=== PATIENT | female | born 1980 | race Caucasian/White ===

== ENCOUNTER 2020-12-21 14:18 | Outpatient (CLI) | payer OTHER ==
[~2020-12-21] VITALS: Ht 152.4 cm; Wt 80.0 kg
[2020-12-21] MEDS ORDERED: PREN1TAB60 PO (14:41)
[2020-12-21] MEDS ORDERED: ACYC-113 PO (14:43)
[2020-12-21 15:17] VITALS: BP 111/74
[2020-12-21] MEDS ORDERED: ZOLPIDEM 10MG TABLET PO ONE (17:28)
== END 2020-12-21 17:42 | disposition home or self-care (01) ==
LOC: LDOP 14:18 → EDSTATUS 12-24 14:17
PROVIDERS: ATTEND Obstetrics & Gynecology
DX: O09.93 Supervision of high risk pregnancy, unspecified, third trimester (principal); O42.92 Full-term premature rupture of membranes, unspecified as to length of time between rupture and onset of labor; Z3A.38 38 weeks gestation of pregnancy
CPT/HCPCS: 59025; 84112

== ENCOUNTER 2020-12-22 06:44 | Inpatient (IN) | payer OTHER ==
[~2020-12-22] VITALS: Ht 154.9 cm; Wt 80.0 kg
[~2020-12-22 06:44] MED LIST: ACYC-113 PO; PREN1TAB60 PO
[2020-12-22 07:03] VITALS: BP 119/61
[2020-12-22] MEDS ORDERED: NEWBORN KIT ONE (07:44)
[2020-12-22] MEDS ORDERED: LIDOCAINE 1%, 20ML ONE (07:45)
[2020-12-22] MEDS ORDERED: MISOPROSTOL 200 MCG TABLET ONE (07:46)
[2020-12-22 07:51] LABS: BASOPHILS % (AUTO) 1 % (0-1); EOSINOPHILS % (AUTO) 0 % (1-7); LYMPHOCYTES % (AUTO) 10 % (22-44); MEAN CORPUSCULAR HEMOGLOBIN 29.9 pg (27.0-34.8); MEAN CORPUSCULAR HGB CONC 33.5 g/dL (32.4-35.8); MEAN PLATELET VOLUME 8.4 fL (7.4-10.4); MONOCYTES % (AUTO) 5 % (2-9); NEUTROPHILS % (AUTO) 85 % (42-75); PLATELET COUNT 338 x10^3/uL (130-400); RED BLOOD COUNT 3.93 x10^6/uL (3.82-5.3); RED CELL DISTRIBUTION WIDTH 15.3 % (9.6-15.2)
[2020-12-22 07:52] LABS: MD NO
[2020-12-22] MEDS: LACTATED RINGERS 1,000 ML IV SCH ×5 (07:53→22:30)
[2020-12-22] MEDS ORDERED: OXYTOCIN 30U/ 0.9% NaCL 500ML 500 ML IV ONE (08:00)
[2020-12-22] MEDS ORDERED: METOCLOPRAMIDE 5 MG/ML, 2ML IVPush PRN (08:00)
[2020-12-22] MEDS ORDERED: FENTANYL PF 100 MCG/2ML IV PRN (08:00)
[2020-12-22] MEDS ORDERED: FENTANYL PF 100 MCG/2ML IVPush PRN (08:00)
[2020-12-22] MEDS ORDERED: ONDANSETRON 2MG/ML, 2ML IVPush PRN ×2 (08:00→14:30)
[2020-12-22] MEDS ORDERED: TERBUTALINE 1 MG/ML, 1ML IVPush PRN (08:00)
[2020-12-22] MEDS ORDERED: TERBUTALINE 1 MG/ML, 1ML SQ PRN (08:00)
[2020-12-22] MEDS ORDERED: SODIUM CITRATE/CITRIC ACID 30 ML UDC PO PRN (08:00)
[2020-12-22] MEDS ORDERED: OXYTOCIN 30U/ 0.9% NaCL 500ML 500 ML IV PRN (09:30)
[2020-12-22] MEDS ORDERED: BUPIVACAINE 0.25% ONE (13:25)
[2020-12-22] MEDS ORDERED: FENTANYL/BUPIV./NS/PF 250 ML EPIDCONT ONE (13:26)
[2020-12-22] MEDS ORDERED: FENTANYL/BUPIV./NS/PF 250 ML EPIDCONT SCH (14:30)
[2020-12-22] MEDS ORDERED: NALOXONE 0.4 MG/ML, 1ML IVPush PRN (14:30)
[2020-12-22] MEDS ORDERED: LACTATED RINGERS 1,000 ML IVBOLUS PRN (14:30)
[2020-12-22] MEDS ORDERED: DIPHENHYDRAMINE 50 MG/ML, 1ML IVPush PRN (14:30)
[2020-12-22] MEDS ORDERED: EPHEDRINE 50 MG/ML, 1ML IVPush PRN (14:30)
[2020-12-22] MEDS: D5%-LACTATED RINGERS 1,000 ML IV SCH ×2 (16:00→21:18)
[2020-12-22] MEDS ORDERED: ACETAMINOPHEN 325 MG TABLET ONE (21:25)
[2020-12-22] MEDS ORDERED: ACETAMINOPHEN 325 MG TABLET PO PRN ×3 (21:30→23:30)
[2020-12-22] MEDS ORDERED: AMPICILLIN 2 GM in SODIUM CHLORIDE 0.9% 100 ML IVPB ONE (21:30)
[2020-12-22] MEDS ORDERED: CLINDAMYCIN PMX 900MG/50ML 50 ML ONE (22:36)
[2020-12-22] MEDS ORDERED: CLINDAMYCIN PMX 900MG/50ML 50 ML IV ONE (23:00)
[2020-12-22] MEDS ORDERED: ONDANSETRON 2MG/ML, 2ML IV PRN (23:30)
[2020-12-22] MEDS ORDERED: CARBOPROST TROMETHAMINE 250 MCG/ML, 1ML IM PRN (23:30)
[2020-12-22] MEDS ORDERED: CALCIUM CARBONATE 500 MG TAB.CHEW PO PRN (23:30)
[2020-12-22] MEDS ORDERED: SIMETHICONE 80 MG CHEW TAB PO PRN (23:30)
[2020-12-22] MEDS ORDERED: MISOPROSTOL 200 MCG TABLET PR PRN (23:30)
[2020-12-22] MEDS ORDERED: METHYLERGONOVINE 0.2 MG/ML IM PRN (23:30)
[2020-12-22] MEDS ORDERED: HYDROcodone/APAP 5/325 TABLET PO PRN (23:30)
[2020-12-22] MEDS: OXYTOCIN 30U/ 0.9% NaCL 500ML 500 ML IV SCH (23:59)
[2020-12-23] MEDS ORDERED: AMPICILLIN 1 GM in SODIUM CHLORIDE 0.9% 100 ML IV SCH (00:30)
[2020-12-23 04:05] VITALS: BP 104/68
[2020-12-23] MEDS: HYDROcodone/APAP 5/325 TABLET PO PRN ×4 (05:11→20:09)
[2020-12-23] MEDS: DOCUSATE 100 MG CAPSULE PO PRN ×3 (05:11→20:09)
[2020-12-23] MEDS: IBUPROFEN 600 MG TABLET PO PRN ×3 (05:12→17:19)
[2020-12-23 07:23] LABS: MEAN CORPUSCULAR HEMOGLOBIN 29.9 pg (27.0-34.8); MEAN CORPUSCULAR HGB CONC 33.5 g/dL (32.4-35.8); MEAN PLATELET VOLUME 8.7 fL (7.4-10.4); PLATELET COUNT 269 x10^3/uL (130-400); RED BLOOD COUNT 3.42 x10^6/uL (3.82-5.3); RED CELL DISTRIBUTION WIDTH 15.4 % (9.6-15.2)
[2020-12-23 08:00] VITALS: BP 94/64
[2020-12-23] MEDS: D5%-LACTATED RINGERS 1,000 ML IV SCH ×2 (08:00)
[2020-12-23 08:15] LABS: MD YES
[2020-12-23 08:17] LABS: BAND#(MANUAL) 2.26 x10^3/uL; BANDS%(MANUAL) 12 % (0-7); LYMPH#(MANUAL) 1.13 x10^3/uL (1-3.4); LYMPHS% (MANUAL) 6 % (22-44); MONOS#(MANUAL) 0.38 x10^3/uL (0.3-2.7); MONOS% (MANUAL) 2 % (2-9); SEG#(MANUAL) 15.04 x10^3/uL (1.8-6.8); SEGS% (MANUAL) 80 % (42-75)
[2020-12-23 08:18] LABS: <PLATELET ESTIMATE> ADEQUATE; <PLT MORPHOLOGY> NORMAL PLT MORPH; <RBC MORPHOLOGY> NORMAL
[2020-12-23] MEDS: LACTATED RINGERS 1,000 ML IV SCH ×2 (09:11→16:00)
[2020-12-23] MEDS: CEFAZOLIN 2,000 MG in SODIUM CHLORIDE 0.9% 50 ML IV SCH ×2 (09:11→16:19)
[2020-12-23] MEDS: PRENATAL VIT/IRON/FA 1 EACH TABLET PO SCH (09:11)
[2020-12-23] MEDS: OXYTOCIN 30U/ 0.9% NaCL 500ML 500 ML IV SCH ×2 (09:30→19:30)
[2020-12-23 12:00] VITALS: BP 99/69
[2020-12-23 16:00] VITALS: BP 98/68
[2020-12-23 20:00] VITALS: BP 95/66
[2020-12-24] MEDS: CEFAZOLIN 2,000 MG in SODIUM CHLORIDE 0.9% 50 ML IV SCH (00:22)
[2020-12-24] MEDS: HYDROcodone/APAP 5/325 TABLET PO PRN ×2 (00:52→08:56)
[2020-12-24 01:02] VITALS: BP 102/70
[2020-12-24 04:12] VITALS: BP 99/68
[2020-12-24] MEDS: OXYTOCIN 30U/ 0.9% NaCL 500ML 500 ML IV SCH ×2 (04:45→15:30)
[2020-12-24] MEDS: LACTATED RINGERS 1,000 ML IV SCH ×3 (08:00→16:00)
[2020-12-24 08:50] VITALS: BP 113/79
[2020-12-24] MEDS: PRENATAL VIT/IRON/FA 1 EACH TABLET PO SCH (08:56)
[2020-12-24] MEDS: IBUPROFEN 600 MG TABLET PO PRN (08:56)
[2020-12-24] MEDS: DOCUSATE 100 MG CAPSULE PO PRN (08:56)
[2020-12-24] MEDS ORDERED: IBUP-1222 PO (17:37)
[2020-12-24] MEDS ORDERED: FERR325T23 PO (17:37)
[2020-12-24] MEDS ORDERED: HYDR-1067 PO (17:37)
== END 2020-12-24 15:45 | disposition home or self-care (01) | DRG 807 ==
LOC: LDOP 06:44 → LDIP 08:01 → 2NW 12-23 01:13
PROVIDERS: ADMIT Obstetrics & Gynecology; ATTEND Obstetrics & Gynecology
PROC: 10E0XZZ Delivery of Products of Conception, External Approach (ICD-10-PCS; principal; 2020-12-22)
PROC: 3E0R3BZ Introduction of Anesthetic Agent into Spinal Canal, Percutaneous Approach (ICD-10-PCS; 2020-12-22)
PROC: 00HU33Z Insertion of Infusion Device into Spinal Canal, Percutaneous Approach (ICD-10-PCS; 2020-12-22)
PROC: 3E0D7GC Introduction of Other Therapeutic Substance into Mouth and Pharynx, Via Natural or Artificial Opening (ICD-10-PCS; 2020-12-22)
DX: O80 Encounter for full-term uncomplicated delivery (principal); Z37.0 Single live birth; Z3A.39 39 weeks gestation of pregnancy; Z88.1 Allergy status to other antibiotic agents; Z20.822 Contact with and (suspected) exposure to COVID-19
CPT/HCPCS: 36415; J7121; 85025; 86592; 86850; 86900; 87070; 87075; 87077; 87186; 87205; 87635; G0378; J0290; J0690; J2405; J3010; J2590; J7120